=== PATIENT | female | born 1990 ===

== ENCOUNTER 2018-01-29 05:49 | Inpatient (IN) | payer OTHER ==
[~2018-01-29] VITALS: Ht 154.9 cm; Wt 63.0 kg
--- NOTE | 2018-01-29 20:19 | Operative Report ---
Operative/Inv Procedure Report Surgery Date: 01/29/18 Name of Procedure: Repeat low flap transverse section and bilateral tubal ligation Pre-Operative Diagnosis: History of section 2, desires permanent sterilization Post-Operative Diagnosis: Same Estimated Blood Loss: 900 ml Surgeon/Adult Basic Studies Teacher: Rajat RAMESH,Keturah Garnica MD, [place] Anesthesia: block Drains: Mao to gravity Specimens: Portions of right and left fallopian tube Complications: None Condition: Stable Operative/Procedure Note Note: The patient was taken to the operating room where spinal anesthesia was administered without difficulty. She was then placed in dorsal supine position with a leftward tilt. She was prepped and draped in the usual sterile fashion. A Pfannenstiel skin incision was then made with a scalpel and carried through to the underlying layer of fascia. The fascia was incised in the midline and the incision extended laterally with the Connor scissors. Attention was then turned to the inferior aspect of the fascial incision which was grasped with a Bryanna clamps elevated and sharply dissected off the rectus muscles with the Connor scissors. Attention was then turned to the superior aspect of the fascial incision which was grasped with a Tammie clamps elevated, bluntly and sharply dissected off of the rectus muscles with the Connor scissors. The peritoneum was then identified and entered bluntly. The rectus muscles were then bluntly in the midline. The bladder blade was inserted and dense adhesions of the bladder were noted to the lower uterine segment. Bladder flap was then sharply created with the Metzenbaum scissors. The lower uterine segment was then incised with the scalpel. The uterine incision was then extended bluntly. The amniotic membranes were ruptured with the Allis clamp and clear fluid was noted. The infant was then delivered from GLENDA position without difficulty. The mouth and nose were bulb suctioned, the cord was clamped and cut, and the infant was handed off to the waiting inspector aligning. Cord gases were sent. Three-vessel cord placenta was then delivered with fundal massage. Uterus was then exteriorized and cleared of all clots. The uterine incision was then closed with 0 Vicryl in a running locking fashion. Additional [id number] sutures were applied and good hemostasis was noted. Attention was then turned to the patient's left fallopian tube which was grasped with a Calli clamp and free tied with plain suture 2. The knuckle of fallopian tube was then excised with the Metzenbaum scissors. Good hemostasis was noted. The same procedure was then performed on the patient's right fallopian tube and excellent hemostasis was noted. Portions of both fallopian tubes were then sent to pathology. The patient's uterus was then returned to the abdomen. The gutters were cleared of all clots and debris. Richie was applied to the uterine incision and areas of the serosa. Excellent hemostasis was noted. The fascia was then reapproximated with 0 Vicryl in a running fashion. Subcutaneous tissue was reapproximated with 2-0 Vicryl in interrupted fashion. The skin was closed with 4-0 Vicryl in a subcuticular fashion. All counts were reported to be correct 2. The patient was taken to the recovery room in stable condition. Findings: Uterus with dense adhesions of the bladder to the lower uterine segment. Normal tubes and ovaries. Live female infant, Apgars 9/ 9. Discharge Disposition: PACU
[2018-01-30 03:24] VITALS: BP 92/58
[2018-01-30 09:13] LABS: ABSOLUTE BASOPHIL COUNT 0 /CUMM (0.0-0.2); ABSOLUTE EOSINOPHIL COUNT 0.2 /CUMM (0.0-0.7); ABSOLUTE GRANULOCYTE CT 9.1 /CUMM (1.4-6.5); ABSOLUTE MONOCYTE COUNT 0.6 /CUMM (0.10-0.60); BASOPHIL % 0.3 % (0.0-2.0); MEAN CORPUSCULAR HGB 28.5 PG (27.0-31.0)
[2018-01-30 09:41] LABS: ABSOLUTE LYMPH COUNT 2.1 /CUMM (1.2-3.4); EOSINOPHIL % 1.4 % (0-5); GRANULOCYTE % 75.9 % (42.2-75.2); MEAN CORPUSCULAR HGB CONC 33.2 G/DL (33.0-37.0); MEAN CORPUSCULAR VOLUME 85.9 FL (81.0-99.0); MEAN PLATELET VOLUME 9.1 FL (7.4-10.4); PLATELET COUNT 163 /CUMM (130-400); RBC DISTRIBUTION WIDTH 13.9 % (11.5-14.5)
[2018-01-30 09:57] LABS: HEMATOCRIT 23.7 % (37-47); RED BLOOD CELL CT 2.76 /CUMM (4.20-5.40)
--- NOTE | 2018-01-30 14:52 | PN- Post Delivery/GYN ---
Subjective Subjective: feeling gas pains Review of Systems Constitutional: Denies: chills, fever. EENTM: Denies: blurred vision, double vision, visual changes. Cardiovascular: Denies: edema. Respiratory: Denies: cough, short of breath. Gastrointestinal: Denies: diarrhea, nausea, vomiting. Objective Last 24 Hrs of Vital Signs/I&O vss Vital Signs Date Time Temp Pulse Resp B/P B/P Pulse O2 O2 Flow FiO2 Mean Ox Delivery Rate 01/30 0324 92/58 Physical Exam General Appearance Alert, Oriented X3, Cooperative, No Acute Distress Cardiovascular Regular Rate Lungs Clear to Auscultation Abdomen Soft, incision clean and dry Pelvic (FEMALE) lochia serosanganous Assessment/Plan Assessment/Plan POD #1 vss afebrile encourage ambulation Problem List: 1. Attending MD Review Statement Attending Statement Attending MD Statement: examined this patient, discussed with nursing
--- NOTE | 2018-01-31 09:21 | PN- OBGYN ---
Surgical Brief Attending Note Brief Attending Note: POD#2 pt is resting in bed, c/o mild incisional pain, tolerate diet, void without difficulties, flatus(+), ambulating well. PE: VSS CV RRR Lungs CTA B/L Abdomen: soft, mild tender at incision site, uterus firm, fundus below umbilicus , incision steri-strips in place, D/I, lochia mild. Ext: DCT (-) A/P:27yo, s/p RLTCS+BTL, POD#2 1. encourage ambulation and 2. pain management as needed 3. RT PP care
[2018-01-31 11:06] LABS: ABSOLUTE BASOPHIL COUNT 0 /CUMM (0.0-0.2); ABSOLUTE EOSINOPHIL COUNT 0.4 /CUMM (0.0-0.7); ABSOLUTE GRANULOCYTE CT 7.9 /CUMM (1.4-6.5); ABSOLUTE LYMPH COUNT 1.8 /CUMM (1.2-3.4); ABSOLUTE MONOCYTE COUNT 0.6 /CUMM (0.10-0.60); BASOPHIL % 0.3 % (0.0-2.0); EOSINOPHIL % 3.7 % (0-5); GRANULOCYTE % 73.6 % (42.2-75.2); HEMATOCRIT 24.4 % (37-47); MEAN CORPUSCULAR HGB 28.6 PG (27.0-31.0); MEAN CORPUSCULAR HGB CONC 33.2 G/DL (33.0-37.0); MEAN CORPUSCULAR VOLUME 86.2 FL (81.0-99.0); MEAN PLATELET VOLUME 8.2 FL (7.4-10.4); PLATELET COUNT 179 /CUMM (130-400); RBC DISTRIBUTION WIDTH 14.1 % (11.5-14.5); RED BLOOD CELL CT 2.83 /CUMM (4.20-5.40); WHITE BLOOD CELL COUNT 10.7 /CUMM (4.8-10.8)
[2018-02-01] MEDS ORDERED: IBUPROFEN800 M1 PO (08:37)
[2018-02-01] MEDS ORDERED: FERROUS SULFAT325 M3 PO (08:37)
[2018-02-01] MEDS ORDERED: PERCOCET 5-3251 EACH PO (08:37)
--- NOTE | 2018-02-01 08:38 | PN- OBGYN ---
Surgical Brief Attending Note Brief Attending Note: pod#3 pt is ambulating, no complaints. tolerate diet, void without difficulties. flatus(+) PE: VSS CV RRR Lungs CTA B/L Abdomen: soft, nontender, uterus firm, fundus below umbilicus. incision D/C/I, lochia mild Ext: edema(+), DCT (-) A/P: 27 yo, s/p RLTCS+BTL, POD#3 1. encourage ambualtion and 2. pain management as needed 3. will d/c home, f/u in office in 2wks and 6 wks, dischatge instructions given, she understand
== END 2018-02-01 14:43 | DRG 540 ==
LOC: GNO 05:49
PROVIDERS: Obstetrics & Gynecology
PROC: 0UB70ZZ Excision of Bilateral Fallopian Tubes, Open Approach (ICD-10-PCS; principal; 2018-01-29)
PROC: 10D00Z1 Extraction of Products of Conception, Low, Open Approach (ICD-10-PCS; principal; 2018-01-29)
DX: O34.211 Maternal care for low transverse scar from previous cesarean delivery (principal); N85.8 Other specified noninflammatory disorders of uterus; Z3A.39 39 weeks gestation of pregnancy; Z37.0 Single live birth; Z30.2 Encounter for sterilization
CPT/HCPCS: GNOS; 36415; 81003; 87086; J1650; J1885; J7120